=== PATIENT | female | born 1985 | race Caucasian/White ===

== ENCOUNTER 2017-02-28 20:39 | Emergency (ER) | payer MEDICAID, OTHER ==
[~2017-02-28] VITALS: Ht 157.5 cm; Wt 60.7 kg
[~2017-02-28 20:39] MED LIST: BENZ30CR2 TP; DOXY100C2 PO; GABA600T2 PO; HYDR28CR TP; IBUP800T19 PO; MEDR150D3 IM; METR500T PO; NITR100C62 PO; ONDA4TAB10 PO; SULF1TAB24 PO; suboxone IM
[2017-02-28 22:00] VITALS: BP 118/77
--- NOTE | 2017-02-28 22:01 | PHYS DOC ---
General Chief Complaint: SKIN PROBLEM Stated Complaint: STAPH SORES Time Seen by MD: 21:07 Source: patient, old records Exam Limitations: clinical condition Problems: History of Present Illness Initial Comments Pt is 31/F to ED c/o staph recurrance. 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 She notes small itchy/tender lesions scattered c/w prior MRSA. Denies fever/chills/diaphoresis/ myalgias/n/v/d. No prearrival treatment, pt does admit to using heroin this am. Pt is slow and sluggish but protecting her airway maintaining O2sat. Td is UTD, no other c/o. Timing/Duration: getting worse, changing over time Severity: mild Modifying Factors: improves with medication Associated Symptoms: rash Allergies: Coded Allergies: No Known Drug Allergies (Unverified , 03/27/14) verified with pt Past Medical History Medical History: hepatitis, other (MRSA) Surgical History: noncontributory Social History Smoker: cigarettes Alcohol: none Drugs: marijuana (methamphetamine, methadone, heroin) Review of Systems Constitutional: denies chills, denies diaphoresis, denies fever, denies malaise , denies weakness Respiratory: denies cough, denies shortness of breath Cardiovascular: denies chest pain, denies palpitations, denies syncope Gastrointestinal: denies diarrhea, denies nausea, denies vomiting Musculoskeletal: denies back pain, denies joint swelling, denies neck pain Skin: see HPI Psychiatric/Neurological: denies headache, denies numbness, denies paresthesia Physical Exam General Appearance: no apparent distress (sluggish, drowsy) Eyes: bilateral eye normal inspection, bilateral eye PERRL, bilateral eye EOMI Ear, Nose, Throat: hearing grossly normal, normal ENT inspection Neck: non-tender, supple Respiratory: normal breath sounds, no respiratory distress Cardiovascular: normal peripheral pulses, regular rate, rhythm Gastrointestinal: non tender, soft Back: no CVA tenderness, no vertebral tenderness Extremities: non-tender, normal inspection 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 No discharge/abscess) Orders, Labs, Meds Pt is sedated with heroin but rouses and protects airway. She is stable to discharge with family or friend assistance. Departure Time of Disposition: 21:57 Disposition: 01 HOME, SELF-CARE Diagnosis: heroin abuse/addiction, MRSA skin lesions Condition: STABLE Patient Instructions: Alcohol and Drug Addiction, Finding Treatment, Heroin Abuse and Withdrawal, MRSA Overview Additional Instructions: Discontinue substance abuse, seek medical assistance if necessary. OTC tylenol/ibuprofen as needed. Enter into outpatient drug rehabilitation program. I will help you with contact information for different facilities if you agree to seek treatment. Keep wounds clean and dry, washing with soap and warm water twice daily. Rx: bactrim ds, bactroban ointment Follow up with your doctor in 2 days for recheck. Return to ED with new or changing symptoms. CLAUDETTE WEBSTER DO Feb 28, 2017 22:00
== END 2017-02-28 22:00 | disposition home or self-care (01) ==
LOC: ER 20:39
DX: A49.02 Methicillin resistant Staphylococcus aureus infection, unspecified site (principal); F19.10 Other psychoactive substance abuse, uncomplicated; F12.10 Cannabis abuse, uncomplicated; F15.10 Other stimulant abuse, uncomplicated; F17.210 Nicotine dependence, cigarettes, uncomplicated
CPT/HCPCS: 99283